=== PATIENT | female | born 1960 | race Caucasian/White ===

== ENCOUNTER 2021-11-30 11:58 | Inpatient (IN) | payer MEDICAID ==
[~2021-11-30] VITALS: Ht 167.6 cm; Wt 73.0 kg
[2021-11-30] MEDS ORDERED: folic acid 1mg/0.2ml inj IV ONE (12:25)
[2021-11-30] MEDS ORDERED: thiamine 100mg/ml 2ml inj. IV ONE (12:25)
[2021-11-30] MEDS ORDERED: normal saline 1000ML IV soln IVB ONE (12:25)
[2021-11-30 12:49] LABS: BASOPHILS % (AUTO) 0.3 % (0-1); EOSINOPHILS # (AUTO) 0.1 X10'3 (0-0.9); EOSINOPHILS % (AUTO) 0.9 % (0-6); HEMATOCRIT 37.8 % (35.0-45.0); HEMOGLOBIN 12.1 g/dl (12.0-16.0); LYMPHOCYTES # (AUTO) 3.1 X10'3 (1.1-4.8); LYMPHOCYTES % (AUTO) 32.2 % (21-51); MEAN CORPUSCULAR HEMOGLOBIN 25.8 PG (27.0-31.0); MEAN CORPUSCULAR HGB CONC 32.1 g/dL (33.0-36.5); MEAN CORPUSCULAR VOLUME 80.4 FL (78-98); MEAN PLATELET VOLUME 6.7 FL (7.4-10.4); MONOCYTES # (AUTO) 0.7 X10'3 (0-0.9); MONOCYTES % (AUTO) 7.1 % (2-12); NEUTROPHILS # (AUTO) 5.7 X10'3 (1.8-7.7); NEUTROPHILS % (AUTO) 59.5 % (42-75); PLATELET COUNT 329 X10'3 (140-440); RED BLOOD COUNT 4.71 X10'6 (4.20-5.60); WHITE BLOOD COUNT 9.6 X10'3 (4.5-11.0)
[2021-11-30 13:04] LABS: ALANINE AMINOTRANSFERASE 27 U/L (12-78); ALBUMIN 3.3 G/DL (3.4-5.0); ALBUMIN/GLOBULIN RATIO 1.1 (1.1-1.5); ALKALINE PHOSPHATASE 46 IU/L (46-116); ANION GAP 10 (8-16); ASPARTATE AMINO TRANSFERASE 19 U/L (10-37); BILIRUBIN,TOTAL 0.3 MG/DL (0.1-1.0); BLOOD UREA NITROGEN 11 MG/DL (7-18); BUN/CREATININE RATIO 15.7 (6.6-38.0); CHLORIDE 108 MMOL/L (99-107); ETHANOL < 0.010 GM/DL (0.0-0.010); GLUCOSE 113 MG/DL (70-104); POTASSIUM 3.2 MMOL/L (3.5-5.1); SODIUM 136 MMOL/L (135-145); TOTAL CARBON DIOXIDE 17.6 MMOL/L (24-32); TOTAL PROTEIN 6.4 G/DL (6.4-8.2); eGFR 85 ML/MIN
--- NOTE | 2021-11-30 13:15 | NUR ---
first contact with pt. found sitting in bed, slurred speech noted. pt unable to explain how she got to hospital. states she was 'on the way to her doctor' connected to monitors, awaiting md.
--- NOTE | 2021-11-30 14:03 | NUR ---
PT STRAIGHT CATH'D FOR URINE, TOLERATED WELL. PT SLOW TO ANSWER, QUESTIONS. COFUSED ON YEAR AND WHY SHE IS IN THE HOSPITAL. URINE SENT TO LAB.
[2021-11-30] MEDS ORDERED: lactulose 20gm/30ml cup PO ONE (14:05)
[2021-11-30 14:26] LABS: CLARITY,URINE CLEAR (Clear); COLOR,URINE YELLOW (Yellow); GLUCOSE, URINE NEGATIVE (Neg); KETONES,URINE NEGATIVE (Neg); LEUKOCYTE ESTERASE ,URINE NEGATIVE (Neg); NITRITES, URINE NEGATIVE (Neg); OCCULT BLOOD,URINE NEGATIVE (Neg); PH,URINE 6.5 (4.8-8.0); PROTEIN,URINE NEGATIVE (Neg); UROBILINOGEN,URINE 0.2 E.U/dL (0.2-1.0)
[2021-11-30 14:40] LABS: URINE AMPHETAMINE SCREEN NEGATIVE (Neg); URINE BARBITUATE SCREEN NEGATIVE (Neg); URINE BENZODIAZEPINES SCREEN NEGATIVE (Neg); URINE CANNABINOID SCREEN NEGATIVE (Neg); URINE COCAINE SCREEN NEGATIVE (Neg); URINE METHADONE SCREEN NEGATIVE (Neg); URINE OPIATE SCREEN NEGATIVE (Neg); URINE PHENCYCLIDINE SCREEN NEGATIVE (Neg)
[2021-11-30 14:54] LABS: UA COLLECTION TYPE STRAIGHT CATH
--- NOTE | 2021-11-30 15:00 | NUR ---
teleneuro placed in pt room. stroke nurse at bedside.
[2021-11-30] MEDS ORDERED: potassium Cl 20 mEq SR tablet PO PRN (15:10)
[2021-11-30] MEDS ORDERED: magnesium 2GM in 50ml NS 50 ML IV PRN (15:10)
[2021-11-30] MEDS ORDERED: acetaminophen 325mg tablet PO PRN (15:10)
[2021-11-30] MEDS ORDERED: mag hydrox/Alum hydrox/simeth 30ml oral suspension PO PRN (15:10)
[2021-11-30] MEDS ORDERED: potassium CL 10mEq/100ml bag 100 ML IV PRN (15:10)
[2021-11-30] MEDS ORDERED: magnesium 4gm in 100ml NS 100 ML IV PRN (15:10)
--- NOTE | 2021-11-30 15:31 | NUR ---
? Success A new connect request was successfully created for: PRIYA SCHWAB : 1960 ConnectID: [id number] REASON: Code Stroke TLKW 4.5 to 24 hours ACUITY: Acuity Level 2 SUBMITTED: 11/30/2021 15:31 PST
[2021-11-30] MEDS: lactulose 20gm/30ml cup PO SCH ×2 (16:00→23:39)
[2021-11-30] MEDS ORDERED: iohexol 350MG/ML 100ml bottle IV ONE (16:05)
[2021-11-30] MEDS: heparin, porcine 5000 units/ml vial SQ SCH ×2 (16:49→23:39)
[2021-11-30] MEDS ORDERED: CLOP75TA34 PO (18:41)
[2021-11-30] MEDS ORDERED: ACET-2389 PO (18:41)
[2021-11-30] MEDS ORDERED: IBUP-1985 PO (18:41)
[2021-11-30] MEDS ORDERED: HYDR50TA65 PO (18:41)
[2021-11-30] MEDS ORDERED: METH-797 PO (18:41)
[2021-11-30] MEDS ORDERED: ZOLP10TA PO (18:41)
[2021-11-30] MEDS ORDERED: LOSA25TA41 PO (18:41)
[2021-11-30] MEDS ORDERED: ATOR-2 PO (18:41)
[2021-11-30] MEDS ORDERED: BUPR1PAT9 TOP (18:41)
[2021-11-30] MEDS ORDERED: BUSP10TA3 PO (18:41)
[2021-11-30] MEDS ORDERED: PROP10TA10 PO (18:43)
[2021-11-30] MEDS: docusate sod 100mg capsule PO SCH (20:00)
[2021-11-30] MEDS: K and/or MAG REPLACEMENT MC SCH (20:00)
[2021-11-30 23:30] VITALS: BP 155/90
--- NOTE | 2021-11-30 23:30 | NUR ---
patient received from ER . patient AAOx2 name and place, denies pain vitals done and recorded,telemetry placed on patient sinus rhythm, pain patch noted on right shoulder blade.
[2021-11-30] MEDS: potassium Cl 20 mEq SR tablet PO PRN (23:40)
[2021-12-01] MEDS ORDERED: zolpidem 5mg tablet PO ONE ×2 (00:15→21:00)
[2021-12-01 02:00] VITALS: BP 146/84
[2021-12-01 06:00] VITALS: BP 108/66
[2021-12-01 06:16] LABS: BASOPHILS # (AUTO) 0.1 X10'3 (0-0.2); BASOPHILS % (AUTO) 0.5 % (0-1); EOSINOPHILS # (AUTO) 0.1 X10'3 (0-0.9); EOSINOPHILS % (AUTO) 0.8 % (0-6); HEMATOCRIT 38.3 % (35.0-45.0); LYMPHOCYTES # (AUTO) 3.8 X10'3 (1.1-4.8); LYMPHOCYTES % (AUTO) 36.1 % (21-51); MEAN CORPUSCULAR HEMOGLOBIN 25.4 PG (27.0-31.0); MEAN CORPUSCULAR HGB CONC 31.2 g/dL (33.0-36.5); MEAN CORPUSCULAR VOLUME 81.4 FL (78-98); MEAN PLATELET VOLUME 6.9 FL (7.4-10.4); MONOCYTES # (AUTO) 0.5 X10'3 (0-0.9); NEUTROPHILS % (AUTO) 57.6 % (42-75); PLATELET COUNT 315 X10'3 (140-440); RED BLOOD COUNT 4.71 X10'6 (4.20-5.60); RED CELL DISTRIBUTION WIDTH 17.2 % (11.5-14.5); WHITE BLOOD COUNT 10.4 X10'3 (4.5-11.0)
[2021-12-01 06:57] LABS: ALANINE AMINOTRANSFERASE 27 U/L (12-78); ALBUMIN/GLOBULIN RATIO 1.2 (1.1-1.5); ALKALINE PHOSPHATASE 48 IU/L (46-116); ANION GAP 13 (8-16); ASPARTATE AMINO TRANSFERASE 15 U/L (10-37); BILIRUBIN,TOTAL 0.2 MG/DL (0.1-1.0); BLOOD UREA NITROGEN 7 MG/DL (7-18); BUN/CREATININE RATIO 10.9 (6.6-38.0); CALCIUM 7.7 MG/DL (8.5-10.1); CHLORIDE 113 MMOL/L (99-107); CHOL/HDL RATIO 3.7 (0.00-4.99); CHOLESTEROL 157 MG/DL (0-200); CREATININE 0.64 MG/DL (0.40-0.90); GLUCOSE 87 MG/DL (70-104); HDL CHOLESTEROL 43 MG/DL (35-60); LDL CHOLESTEROL 78 MG/DL (50-100); POTASSIUM 3.8 MMOL/L (3.5-5.1); SODIUM 143 MMOL/L (135-145); TOTAL CARBON DIOXIDE 17.3 MMOL/L (24-32); TOTAL PROTEIN 5.5 G/DL (6.4-8.2); TRIGLYCERIDES 165 MG/DL (20-135); eGFR > 90 ML/MIN
[2021-12-01] MEDS: lactulose 20gm/30ml cup PO SCH ×2 (07:51→16:30)
[2021-12-01] MEDS: heparin, porcine 5000 units/ml vial SQ SCH ×2 (07:52→16:31)
[2021-12-01] MEDS: docusate sod 100mg capsule PO SCH ×2 (07:52→20:31)
[2021-12-01] MEDS: K and/or MAG REPLACEMENT MC SCH ×2 (08:00→20:00)
[2021-12-01 11:00] VITALS: BP 115/64
[2021-12-01] MEDS: ondansetron/PF 4mg/2ml inj IV PRN (11:47)
--- NOTE | 2021-12-01 14:13 | NUR ---
PAGER ID: [phone] MESSAGE: [id number] Faye Tapia has pain 9/10 on her right temporal all the way to ear. She has nothing for pain please advise. Thanks Jane ext [phone]
[2021-12-01 15:00] VITALS: BP 156/74
[2021-12-01] MEDS: HYDROcodone/acetaminophen 10/325mg tab PO PRN ×2 (16:29→17:32)
[2021-12-02] MEDS: lactulose 20gm/30ml cup PO SCH ×3 (01:25→23:50)
[2021-12-02] MEDS: heparin, porcine 5000 units/ml vial SQ SCH ×4 (01:25→23:48)
[2021-12-02 02:00] VITALS: BP 117/64
[2021-12-02 06:00] VITALS: BP 147/83
[2021-12-02 06:30] LABS: BASOPHILS % (AUTO) 0.2 % (0-1); EOSINOPHILS # (AUTO) 0.1 X10'3 (0-0.9); EOSINOPHILS % (AUTO) 0.8 % (0-6); HEMATOCRIT 40.6 % (35.0-45.0); LYMPHOCYTES # (AUTO) 2.7 X10'3 (1.1-4.8); LYMPHOCYTES % (AUTO) 27.2 % (21-51); MEAN CORPUSCULAR HEMOGLOBIN 25.8 PG (27.0-31.0); MEAN CORPUSCULAR VOLUME 80.5 FL (78-98); MEAN PLATELET VOLUME 6.8 FL (7.4-10.4); MONOCYTES # (AUTO) 0.7 X10'3 (0-0.9); MONOCYTES % (AUTO) 7.2 % (2-12); NEUTROPHILS # (AUTO) 6.5 X10'3 (1.8-7.7); NEUTROPHILS % (AUTO) 64.6 % (42-75); PLATELET COUNT 332 X10'3 (140-440); RED BLOOD COUNT 5.04 X10'6 (4.20-5.60); RED CELL DISTRIBUTION WIDTH 17.2 % (11.5-14.5)
[2021-12-02 06:51] LABS: ALANINE AMINOTRANSFERASE 28 U/L (12-78); ALBUMIN 3.4 G/DL (3.4-5.0); ALBUMIN/GLOBULIN RATIO 1.3 (1.1-1.5); ALKALINE PHOSPHATASE 51 IU/L (46-116); ANION GAP 12 (8-16); ASPARTATE AMINO TRANSFERASE 19 U/L (10-37); BILIRUBIN,TOTAL 0.2 MG/DL (0.1-1.0); BLOOD UREA NITROGEN 6 MG/DL (7-18); BUN/CREATININE RATIO 8.8 (6.6-38.0); CALCIUM 8.8 MG/DL (8.5-10.1); CHLORIDE 110 MMOL/L (99-107); CREATININE 0.68 MG/DL (0.40-0.90); GLUCOSE 111 MG/DL (70-104); MAGNESIUM 2.2 MG/DL (1.5-2.4); POTASSIUM 3.4 MMOL/L (3.5-5.1); SODIUM 142 MMOL/L (135-145); TOTAL PROTEIN 6.1 G/DL (6.4-8.2); eGFR 88 ML/MIN
[2021-12-02] MEDS: ondansetron/PF 4mg/2ml inj IV PRN ×2 (07:03→13:31)
[2021-12-02] MEDS: docusate sod 100mg capsule PO SCH ×2 (08:00→19:28)
[2021-12-02] MEDS: HYDROcodone/acetaminophen 10/325mg tab PO PRN ×2 (09:02→13:30)
[2021-12-02] MEDS ORDERED: acetaminophen 325mg tablet PO PRN (09:35)
[2021-12-02] MEDS ORDERED: BUPRENORPHINE (Butrans) 10MCG PATCH.TDWK (7-day patch) TD SCH (09:35)
[2021-12-02] MEDS ORDERED: BUPRENORPHINE (Butrans) 10MCG PATCH.TDWK (7-day patch) TP SCH (09:38)
[2021-12-02 11:00] VITALS: BP 147/84
--- NOTE | 2021-12-02 11:12 | NUR ---
PAGER ID: [phone] MESSAGE: [id number] Faye Tapia was given Zofran at 0730, it was not effective. Do you want to give a second line anti nausea med? Please advise. Thanks Jane ext [phone]
[2021-12-02] MEDS: cyclobenzaprine 10mg tablet PO SCH ×2 (13:28→20:17)
[2021-12-02] MEDS: busPIRone 5mg tablet PO SCH ×2 (13:31→19:27)
[2021-12-02] MEDS: atorvastatin 20mg tablet PO SCH (13:31)
[2021-12-02] MEDS: K and/or MAG REPLACEMENT MC SCH ×2 (13:38→19:26)
[2021-12-02] MEDS: potassium Cl 20 mEq SR tablet PO PRN ×2 (13:38→19:27)
[2021-12-02 15:00] VITALS: BP 94/47
--- NOTE | 2021-12-02 15:53 | NUR ---
PAGER ID: [phone] MESSAGE: [id number] is continuously nauseated and the Zofran only works momentarily. Do you want to prescribe a second line nausea medication? Please advise. Jane MAR ext [phone]
[2021-12-02] MEDS ORDERED: proCHLORperazine 10 MG/2 ml inj IV PRN (15:55)
[2021-12-02 18:00] VITALS: BP 129/78
[2021-12-02] MEDS: propranolol 10mg tablet PO SCH (19:26)
[2021-12-02] MEDS: zolpidem 5mg tablet PO PRN (19:27)
[2021-12-03 02:00] VITALS: BP 130/91
[2021-12-03 05:57] LABS: BASOPHILS % (AUTO) 0.5 % (0-1); EOSINOPHILS # (AUTO) 0.1 X10'3 (0-0.9); EOSINOPHILS % (AUTO) 0.8 % (0-6); HEMATOCRIT 45.4 % (35.0-45.0); HEMOGLOBIN 14.2 g/dl (12.0-16.0); LYMPHOCYTES % (AUTO) 34.1 % (21-51); MEAN CORPUSCULAR HEMOGLOBIN 25.8 PG (27.0-31.0); MEAN CORPUSCULAR HGB CONC 31.2 g/dL (33.0-36.5); MEAN CORPUSCULAR VOLUME 82.7 FL (78-98); MEAN PLATELET VOLUME 6.8 FL (7.4-10.4); MONOCYTES # (AUTO) 0.7 X10'3 (0-0.9); MONOCYTES % (AUTO) 8.2 % (2-12); NEUTROPHILS # (AUTO) 4.9 X10'3 (1.8-7.7); NEUTROPHILS % (AUTO) 56.4 % (42-75); PLATELET COUNT 318 X10'3 (140-440); RED BLOOD COUNT 5.49 X10'6 (4.20-5.60); RED CELL DISTRIBUTION WIDTH 17.3 % (11.5-14.5); WHITE BLOOD COUNT 8.7 X10'3 (4.5-11.0)
[2021-12-03 06:00] VITALS: BP 124/78
[2021-12-03 06:31] LABS: ALANINE AMINOTRANSFERASE 37 U/L (12-78); ALBUMIN 3.6 G/DL (3.4-5.0); ALBUMIN/GLOBULIN RATIO 1.3 (1.1-1.5); ALKALINE PHOSPHATASE 57 IU/L (46-116); ANION GAP 17 (8-16); ASPARTATE AMINO TRANSFERASE 32 U/L (10-37); BILIRUBIN,TOTAL 0.3 MG/DL (0.1-1.0); BLOOD UREA NITROGEN 6 MG/DL (7-18); BUN/CREATININE RATIO 7.9 (6.6-38.0); CALCIUM 9.4 MG/DL (8.5-10.1); CHLORIDE 113 MMOL/L (99-107); CREATININE 0.76 MG/DL (0.40-0.90); GLUCOSE 127 MG/DL (70-104); MAGNESIUM 2.3 MG/DL (1.5-2.4); SODIUM 143 MMOL/L (135-145); TOTAL PROTEIN 6.4 G/DL (6.4-8.2); eGFR 78 ML/MIN
[2021-12-03 06:37] LABS: POTASSIUM 4.8 MMOL/L (3.5-5.1)
--- NOTE | 2021-12-03 06:48 | NUR ---
Problems reprioritized. Patient report given, questions answered & plan of care reviewed with Kathryn MAR.
[2021-12-03 06:52] LABS: TOTAL CARBON DIOXIDE 13.4 MMOL/L (24-32)
--- NOTE | 2021-12-03 07:04 | NUR ---
PAGER ID: [phone] MESSAGE: [id number] WillieFaye- [facility] [place] 13.4. Ok to hold BP medications for permissive HTN? Kathryn 54Eloise Addendum: 12/03/21 at 0715 by Kathryn Rice RN Dr. Diaz called back. States to order ABG and to hold propranolol and Cozaar for permissive HTN
[2021-12-03] MEDS: losartan 25mg tablet PO SCH (08:00)
[2021-12-03] MEDS: propranolol 10mg tablet PO SCH ×2 (08:00→19:44)
[2021-12-03] MEDS: K and/or MAG REPLACEMENT MC SCH ×2 (08:00→20:00)
[2021-12-03] MEDS: docusate sod 100mg capsule PO SCH ×2 (08:00→19:44)
[2021-12-03 08:03] LABS: ABG BASE EXCESS -9.4 mmol/L (-2.0-2.0); ABG HCO3 15.8 mmol/L (22.0-26.0); ABG OXYGEN SATURATION 94.5 % (94-97); ABG PCO2 (T) 32.6 mmHg (32.0-45.0); ABG PO2 (T) 73.4 mmHg (75.0-100.0); ALLEN'S TEST POSITIVE; FMetHb 0.3 % (0.0-1.5); FO2Hb 93.3 % (94-97)
[2021-12-03] MEDS ORDERED: iohexol 300mg/ml 100ml inj. ONE (08:35)
[2021-12-03] MEDS: busPIRone 5mg tablet PO SCH ×2 (08:35→19:44)
[2021-12-03] MEDS: cyclobenzaprine 10mg tablet PO SCH ×3 (08:35→19:44)
[2021-12-03] MEDS: clopidogrel 75mg tablet PO SCH (08:35)
[2021-12-03] MEDS: atorvastatin 20mg tablet PO SCH (08:36)
[2021-12-03] MEDS: heparin, porcine 5000 units/ml vial SQ SCH ×2 (08:37→16:15)
[2021-12-03] MEDS: lactulose 20gm/30ml cup PO SCH ×3 (08:38→22:21)
[2021-12-03] MEDS: sodium bicarbonate (8.4%) inj. 150 MEQ in dextrose 5%-water 1,000 ML IV SCH ×2 (09:40→22:22)
[2021-12-03 11:00] VITALS: BP 118/79
[2021-12-03 15:00] VITALS: BP 132/85
[2021-12-03 18:00] VITALS: BP 146/94
--- NOTE | 2021-12-03 18:00 | NUR ---
Problems reprioritized. Patient report given, questions answered & plan of care reviewed with Marylou MAR.
[2021-12-03 22:00] VITALS: BP 123/86
[2021-12-03] MEDS: zolpidem 5mg tablet PO PRN (22:21)
[2021-12-03] MEDS: ondansetron/PF 4mg/2ml inj IV PRN (22:27)
--- NOTE | 2021-12-04 00:09 | NUR ---
Patient in room PCU 3017. I have received report from ARABELLA MAR and had the opportunity to ask questions and assume patient care.
--- NOTE | 2021-12-04 00:17 | NUR ---
Assumed care after mid night and will continue to monitor.
[2021-12-04] MEDS: heparin, porcine 5000 units/ml vial SQ SCH ×3 (00:19→15:51)
[2021-12-04 02:00] VITALS: BP 112/82
--- NOTE | 2021-12-04 06:28 | NUR ---
Problems reprioritized. Patient report given, questions answered & plan of care reviewed with LENORE MAR.
[2021-12-04 06:43] LABS: BASOPHILS % (AUTO) 0.3 % (0-1); EOSINOPHILS # (AUTO) 0.1 X10'3 (0-0.9); EOSINOPHILS % (AUTO) 0.7 % (0-6); HEMATOCRIT 40.6 % (35.0-45.0); HEMOGLOBIN 13.4 g/dl (12.0-16.0); LYMPHOCYTES # (AUTO) 3.3 X10'3 (1.1-4.8); LYMPHOCYTES % (AUTO) 35.5 % (21-51); MEAN CORPUSCULAR HEMOGLOBIN 26.2 PG (27.0-31.0); MEAN CORPUSCULAR HGB CONC 33.1 g/dL (33.0-36.5); MEAN CORPUSCULAR VOLUME 79.1 FL (78-98); MEAN PLATELET VOLUME 6.8 FL (7.4-10.4); MONOCYTES # (AUTO) 0.7 X10'3 (0-0.9); MONOCYTES % (AUTO) 7.1 % (2-12); NEUTROPHILS # (AUTO) 5.2 X10'3 (1.8-7.7); NEUTROPHILS % (AUTO) 56.4 % (42-75); PLATELET COUNT 314 X10'3 (140-440); RED BLOOD COUNT 5.13 X10'6 (4.20-5.60); RED CELL DISTRIBUTION WIDTH 17.1 % (11.5-14.5); WHITE BLOOD COUNT 9.3 X10'3 (4.5-11.0)
[2021-12-04 07:00] VITALS: BP 124/81
[2021-12-04 07:18] LABS: ALANINE AMINOTRANSFERASE 32 U/L (12-78); ALBUMIN 3.1 G/DL (3.4-5.0); ALBUMIN/GLOBULIN RATIO 1.3 (1.1-1.5); ALKALINE PHOSPHATASE 47 IU/L (46-116); ANION GAP 12 (8-16); ASPARTATE AMINO TRANSFERASE 17 U/L (10-37); BILIRUBIN,TOTAL 0.2 MG/DL (0.1-1.0); BLOOD UREA NITROGEN 5 MG/DL (7-18); BUN/CREATININE RATIO 6.3 (6.6-38.0); CALCIUM 8.6 MG/DL (8.5-10.1); CHLORIDE 106 MMOL/L (99-107); GLUCOSE 140 MG/DL (70-104); MAGNESIUM 1.7 MG/DL (1.5-2.4); SODIUM 144 MMOL/L (135-145); TOTAL CARBON DIOXIDE 25.8 MMOL/L (24-32); TOTAL PROTEIN 5.4 G/DL (6.4-8.2); eGFR 73 ML/MIN
[2021-12-04] MEDS ORDERED: magnesium Cl slow-release 64mg tablet PO PRN (07:50)
[2021-12-04] MEDS ORDERED: potassium Cl 20 mEq SR tablet PO PRN (07:50)
[2021-12-04] MEDS ORDERED: potassium CL 10mEq/100ml bag 100 ML IV PRN (07:50)
[2021-12-04] MEDS ORDERED: magnesium 4gm in 100ml NS 100 ML IV PRN (07:50)
[2021-12-04] MEDS: clopidogrel 75mg tablet PO SCH (07:53)
[2021-12-04] MEDS: atorvastatin 20mg tablet PO SCH (07:53)
[2021-12-04] MEDS: docusate sod 100mg capsule PO SCH ×2 (07:54→19:22)
[2021-12-04] MEDS: propranolol 10mg tablet PO SCH ×2 (07:54→19:22)
[2021-12-04] MEDS: losartan 25mg tablet PO SCH (07:54)
[2021-12-04] MEDS: hydrOXYzine 25 MG tablet PO PRN ×2 (07:55→17:03)
[2021-12-04] MEDS: cyclobenzaprine 10mg tablet PO SCH ×3 (07:55→19:23)
[2021-12-04] MEDS: busPIRone 5mg tablet PO SCH ×2 (07:55→19:22)
[2021-12-04] MEDS: nicotine 14mg patch - 24hr TD SCH (07:56)
[2021-12-04] MEDS: lactulose 20gm/30ml cup PO SCH ×2 (07:57→15:50)
[2021-12-04] MEDS: K and/or MAG REPLACEMENT MC SCH ×2 (08:00→20:00)
[2021-12-04] MEDS: potassium Cl 20 mEq SR tablet PO PRN ×3 (08:08→19:23)
[2021-12-04] MEDS: sodium bicarbonate (8.4%) inj. 150 MEQ in dextrose 5%-water 1,000 ML IV SCH (08:11)
[2021-12-04 11:00] VITALS: BP 123/76
--- NOTE | 2021-12-04 11:29 | NUR ---
Page Accepted promotional table spacer Message: [id number] Willie. Unable to obtain IV access even with US guidance. Jessica [phone]
--- NOTE | 2021-12-04 11:29 | NUR ---
3 RNs tried to obtain IV access and were unable to do so . ED RN came up with ultrasound to place PIV and was not able to obtain access . Dr. John notified by page.
[2021-12-04 15:00] VITALS: BP 115/86
[2021-12-04] MEDS: HYDROcodone/acetaminophen 10/325mg tab PO PRN ×2 (15:52→17:21)
--- NOTE | 2021-12-04 18:11 | NUR ---
Problems reprioritized. Patient report given, questions answered & plan of care reviewed with Marylou MAR. Patient resting in bed in no acute distress.
--- NOTE | 2021-12-04 18:25 | NUR ---
Patient was not administered a second norco at 1721 my orientee was trying to reasses pain and ended up accidentally administering norco instead. I caught the mistake when I was checking charting and immediately called pharmacy to verify.
[2021-12-04] MEDS: sodium bicarbonate 650mg tablet PO SCH (19:23)
[2021-12-04] MEDS: zolpidem 5mg tablet PO PRN (21:12)
[2021-12-04 22:00] VITALS: BP 101/62
[2021-12-05 02:00] VITALS: BP 110/71
--- NOTE | 2021-12-05 05:46 | NUR ---
Patient slept throughout the night, no issues observed.
[2021-12-05 07:00] VITALS: BP 122/88
--- NOTE | 2021-12-05 07:26 | NUR ---
Page to PICC RN 1962Q Willie. Patient needs midline. Unable to obtain IV access with US assistance from ED yesterday and lab is having difficulty drawing. Jessica [phone]
[2021-12-05] MEDS: atorvastatin 20mg tablet PO SCH (07:32)
[2021-12-05] MEDS: losartan 25mg tablet PO SCH (07:33)
[2021-12-05] MEDS: clopidogrel 75mg tablet PO SCH (07:33)
[2021-12-05] MEDS: propranolol 10mg tablet PO SCH (07:33)
[2021-12-05] MEDS: lactulose 20gm/30ml cup PO SCH ×2 (07:33)
[2021-12-05] MEDS: cyclobenzaprine 10mg tablet PO SCH ×2 (07:34→12:05)
[2021-12-05] MEDS: docusate sod 100mg capsule PO SCH ×2 (07:34→07:45)
[2021-12-05] MEDS: HYDROcodone/acetaminophen 10/325mg tab PO PRN (07:35)
[2021-12-05] MEDS: busPIRone 5mg tablet PO SCH (07:35)
[2021-12-05] MEDS: nicotine 14mg patch - 24hr TD SCH (07:36)
[2021-12-05] MEDS: heparin, porcine 5000 units/ml vial SQ SCH ×2 (07:37)
[2021-12-05] MEDS: sodium bicarbonate 650mg tablet PO SCH ×2 (07:41→12:05)
[2021-12-05 07:55] LABS: BASOPHILS % (AUTO) 0.3 % (0-1); EOSINOPHILS # (AUTO) 0.1 X10'3 (0-0.9); EOSINOPHILS % (AUTO) 1.2 % (0-6); HEMATOCRIT 43.7 % (35.0-45.0); HEMOGLOBIN 14.1 g/dl (12.0-16.0); LYMPHOCYTES # (AUTO) 3.8 X10'3 (1.1-4.8); LYMPHOCYTES % (AUTO) 39.5 % (21-51); MEAN CORPUSCULAR HEMOGLOBIN 26.3 PG (27.0-31.0); MEAN CORPUSCULAR HGB CONC 32.3 g/dL (33.0-36.5); MEAN CORPUSCULAR VOLUME 81.4 FL (78-98); MEAN PLATELET VOLUME 7.1 FL (7.4-10.4); MONOCYTES # (AUTO) 0.7 X10'3 (0-0.9); MONOCYTES % (AUTO) 7.1 % (2-12); NEUTROPHILS % (AUTO) 51.9 % (42-75); PLATELET COUNT 359 X10'3 (140-440); RED BLOOD COUNT 5.38 X10'6 (4.20-5.60); RED CELL DISTRIBUTION WIDTH 17.1 % (11.5-14.5); WHITE BLOOD COUNT 9.5 X10'3 (4.5-11.0)
[2021-12-05 07:58] LABS: ALANINE AMINOTRANSFERASE 46 U/L (12-78); ALBUMIN 3.6 G/DL (3.4-5.0); ALBUMIN/GLOBULIN RATIO 1.3 (1.1-1.5); ALKALINE PHOSPHATASE 54 IU/L (46-116); ANION GAP 12 (8-16); ASPARTATE AMINO TRANSFERASE 27 U/L (10-37); BILIRUBIN,TOTAL 0.3 MG/DL (0.1-1.0); BLOOD UREA NITROGEN 8 MG/DL (7-18); BUN/CREATININE RATIO 10.3 (6.6-38.0); CALCIUM 9.5 MG/DL (8.5-10.1); CHLORIDE 106 MMOL/L (99-107); CREATININE 0.78 MG/DL (0.40-0.90); GLUCOSE 113 MG/DL (70-104); POTASSIUM 4.8 MMOL/L (3.5-5.1); SODIUM 141 MMOL/L (135-145); TOTAL CARBON DIOXIDE 22.9 MMOL/L (24-32); TOTAL PROTEIN 6.3 G/DL (6.4-8.2); eGFR 75 ML/MIN
[2021-12-05] MEDS: K and/or MAG REPLACEMENT MC SCH (08:00)
[2021-12-05] MEDS ORDERED: levetiracetam 250mg tablet PO ONE (09:15)
[2021-12-05] MEDS ORDERED: LACT10SO32 PO (09:20)
[2021-12-05] MEDS ORDERED: KEP500T PO (09:20)
[2021-12-05] MEDS ORDERED: SODI650T29 PO (09:21)
[2021-12-05 11:00] VITALS: BP 121/79
--- NOTE | 2021-12-05 11:34 | NUR ---
Initial: Pt admit dx encephalopathy, hyperammonemia, and hx of CVA per EMR. PO intake 50% avg of SB6 heart healthy meals, meeting ~58% of estimated energy needs and ~94% of estimated protein needs. Noted A&O progressively improving from x2 to x3 and dx of encephalopathy per EMR, likely contributing to poor PO intake. Pt would benefit from Magic cups TIDWM to help meet kcal/protein needs, dietary notified. LBM 12/04, receiving routine bowel care. Will continue to monitor. Recommendations: 1. Continue SB6 and heart healthy diet as tolerated 2. Magic Cups TIDWM 3. Encourage PO intake 4. Routine bowel care 5. Weekly wt Addendum: 12/05/21 at [address] Amended: Links added. Addendum: 12/05/21 at [address] RD has reviewed and approves of above note.
--- NOTE | 2021-12-05 12:58 | NUR ---
Patient is DC to home. She did not have an IV. RX were escripted to [facility] in [place]. DC instructions and warning s/s were reviewed with the patient and she verbalized understanding. PT was alert, oriented, and appropriate at time of dc. Patient was wheeled out to her friend for a ride home.
[2021-12-09] MEDS ORDERED: REMOVE & WASTE BUTRANS PATCH DOCUMENTATION TD SCH (08:00)
== END 2021-12-05 12:46 | disposition home health service (06) | DRG 52 ==
LOC: ER 11:58 → ED HOLD 15:14 → PCU 3S 23:00
PROVIDERS: ADMIT Family Medicine; ATTEND Family Medicine
PROC: B3251ZZ Computerized Tomography (CT Scan) of Bilateral Common Carotid Arteries using Low Osmolar Contrast (ICD-10-PCS; principal; 2021-11-30)
PROC: B32G1ZZ Computerized Tomography (CT Scan) of Bilateral Vertebral Arteries using Low Osmolar Contrast (ICD-10-PCS; 2021-11-30)
PROC: B32R1ZZ Computerized Tomography (CT Scan) of Intracranial Arteries using Low Osmolar Contrast (ICD-10-PCS; 2021-11-30)
PROC: B3281ZZ Computerized Tomography (CT Scan) of Bilateral Internal Carotid Arteries using Low Osmolar Contrast (ICD-10-PCS; 2021-11-30)
PROC: BW211ZZ Computerized Tomography (CT Scan) of Abdomen and Pelvis using Low Osmolar Contrast (ICD-10-PCS; 2021-12-03)
DX: G93.41 Metabolic encephalopathy (principal); E72.20 Disorder of urea cycle metabolism, unspecified; Z90.79 Acquired absence of other genital organ(s); I10 Essential (primary) hypertension; I25.10 Atherosclerotic heart disease of native coronary artery without angina pectoris; Z66 Do not resuscitate; E87.6 Hypokalemia; F17.210 Nicotine dependence, cigarettes, uncomplicated; Z71.6 Tobacco abuse counseling; Z90.710 Acquired absence of both cervix and uterus; Z90.722 Acquired absence of ovaries, bilateral; Z95.5 Presence of coronary angioplasty implant and graft; Z88.8 Allergy status to other drugs, medicaments and biological substances; Z88.1 Allergy status to other antibiotic agents; Z88.5 Allergy status to narcotic agent; Z79.899 Other long term (current) drug therapy; Z79.02 Long term (current) use of antithrombotics/antiplatelets; Z86.73 Personal history of transient ischemic attack (TIA), and cerebral infarction without residual deficits
CPT/HCPCS: 36415; 36600; 70450; 70496; 70498; 70551; 74177; 80053; 80061; 80305; 80320; 81003; 82140; 82803; 83735; 85018; 85025; 87081; 92508; 92616; 93306; 93880; 95816; 96360; 97161; 97530; 99285; G0378; J0780; J1644; J2405; J3411; J3490; J7030; J7070; Q0177; Q9967

== ENCOUNTER → 2025-05-19 | Day surgery (SDC) | payer MEDICAID ==
[2025-05-15 09:34] LABS: MEAN PLATELET VOLUME 7.2 FL (7.4-10.4); RED CELL DISTRIBUTION WIDTH 15.1 % (11.5-14.5)
[2025-05-15 09:49] LABS: APTT 29 SECONDS (22-32); INR 1.0 INR
[2025-05-15 09:51] LABS: CHOL/HDL RATIO 3.3 (0.00-4.99); CREATININE 0.57 MG/DL (0.40-0.90); LDL CHOLESTEROL 133 MG/DL (50-100); TOTAL CARBON DIOXIDE 17.6 MMOL/L (24-32); eGFR > 90 ML/MIN
[~2025-05-19] VITALS: Ht 165.1 cm; Wt 63.9 kg
[~2025-05-19] MED LIST: ACET-2389 PO; APIX5TAB3 PO; ASPI-1397 PO; ATOR-2 PO; BUPR1PAT9 TOP; BUSP10TA3 PO; CLIN300C56 PO; CLOP75TA34 PO; ERGO500093 PO; FLUT16SP26; HYDR50TA65 PO; KEP500T PO; LACT10SO78 PO; LEVA15HF9 INH; LOSA25TA41 PO; METH-797 PO; NITR0.4T48; ONDA-243; PANT40TA54 PO; PROP10TA10 PO; SODI650T29 PO; TIZA-205 PO; ZOLP-679 PO
--- NOTE | 2025-05-19 10:20 | ELECTROCARDIOGRAPH REPORT ---
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
== END | disposition home or self-care (01) ==
LOC: LAB 05-15 08:59 → SSTAY O 09:43 → EDSTATUS 14:00
PROVIDERS: ATTEND Student in an Organized Health Care Education/Training Program
DX: R94.30 Abnormal result of cardiovascular function study, unspecified (principal); I25.10 Atherosclerotic heart disease of native coronary artery without angina pectoris; I11.9 Hypertensive heart disease without heart failure; E78.5 Hyperlipidemia, unspecified
CPT/HCPCS: 36415; 80048; 80061; 83695; 85025; 85610; 85730; 93005; J7030

== ENCOUNTER 2025-06-16 11:04 | Day surgery (SDC) | payer MEDICAID ==
[2025-06-12 10:45] LABS: MEAN PLATELET VOLUME 7.5 FL (7.4-10.4); RED CELL DISTRIBUTION WIDTH 15.8 % (11.5-14.5)
[2025-06-12 10:57] LABS: APTT 27 SECONDS (22-32); INR 1.1 INR
[2025-06-12 10:58] LABS: CREATININE 0.65 MG/DL (0.40-0.90); TOTAL CARBON DIOXIDE 26.7 MMOL/L (24-32); eGFR > 90 ML/MIN
[~2025-06-16] VITALS: Ht 165.1 cm; Wt 64.1 kg
[2025-06-16] VITALS (12 sets, daily range): BP systolic 124–170; BP diastolic 67–80; PULSE 59–86; RESP 12–17; TEMP 98.1; O2SAT 90–97
[~2025-06-16 11:04] MED LIST changes: -BUSP10TA3 PO; -LACT10SO78 PO; -PROP10TA10 PO; -SODI650T29 PO
--- NOTE | 2025-06-16 11:40 | ELECTROCARDIOGRAPH REPORT ---
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 MICHAEL Lopez Measurements Intervals [place] Rate: 87 P: 74 NC: 128 QRS: 88 QRSD: 130 T: 49 QT: 418 QTc: 503 Interpretive Statements Sinus rhythm Right bundle branch block Electronically Signed On 06-16-2025 17:18:[address] MICHAEL Lopez Please click the below link to view image of tracing.
[2025-06-16] MEDS ORDERED: BUPR1PAT3 TOP (12:35)
[2025-06-16] MEDS ORDERED: ZOLP5TAB8 PO (12:35)
[2025-06-16] MEDS ORDERED: LEVE500T PO (12:37)
[2025-06-16] MEDS ORDERED: fentaNYL/PF 50MCG/1 ML 2ML syringe ONE ×2 (13:56→15:09)
[2025-06-16] MEDS ORDERED: verapamil 2.5 mg/ml inj IV ONE (13:56)
[2025-06-16] MEDS ORDERED: heparin 1,000unit/ml 10ml vial 10 ML ONE (13:56)
[2025-06-16] MEDS ORDERED: midazolam 1 mg/ML 2ml injection ONE ×3 (13:56→14:50)
[2025-06-16] MEDS ORDERED: LIDOcaine 1% (10mg/ml) 2ml vial ONE (13:56)
[2025-06-16] MEDS ORDERED: nitroGLYCERIN 500mcg/5mL D5W 5 ML IV ONE (13:59)
[2025-06-16] MEDS ORDERED: LIDOcaine 1% 30ml preserv. free vial ONE (14:38)
[2025-06-16] MEDS ORDERED: ondansetron/PF 4mg/2ml inj IV PRN (17:10)
[2025-06-16] MEDS ORDERED: HYDROcodone/acetaminophen 10/325mg tab PO PRN (17:15)
[2025-06-16] MEDS ORDERED: OXAZEpam 15mg capsule PO PRN (17:15)
[2025-06-16] MEDS ORDERED: HYDROcodone/acetaminophen 5mg/325mg tablet PO PRN (17:15)
--- NOTE | 2025-06-21 18:45 | GI LAB REPORT ---
DATE OF PROCEDURE: 06/16/2025 DICTATING PHYSICIAN: Joel Joe MD DATE OF PROCEDURE: 06/16/2025. PROCEDURES: * Attempted access to the right radial artery. * Access to the right common femoral artery. * Selective right common femoral and iliac artery angiography. * Access to the left common femoral artery. * Selective coronary angiography. * Left ventriculography. * Aortoiliac angiography. * Conscious sedation monitoring time for 30 minutes. INDICATION: Chest pain. PHYSICIAN: Joel Joe MD DESCRIPTION OF PROCEDURE: After informed consent was obtained, the patient was brought to the lab, where she was prepped and draped in the usual sterile fashion. Attempt at accessing the right radial artery was made without success. Thereafter, access to the right common femoral artery was obtained. Difficulty was encountered in advancing the wire above the common iliac artery. Selective angiography revealed an occluded right common iliac artery. Access to the left common femoral artery was then obtained. Using a JL4 followed by a JR4 catheter, selective coronary angiography was performed. The JR4 catheter was then pulled back to the distal abdominal aorta, where aortoiliac artery was performed. The pigtail catheter was then manipulated to engage the left ventricle and left ventricular end diastolic pressure was obtained. HEMODYNAMICS: For the patient's hemodynamics, please refer to the event log. Left ventricular end diastolic pressure was 15 mmHg. FINDINGS: Access to the right common femoral artery was obtained. Difficulty was encountered in advancing the wire above the common iliac artery. Selective angiography of the iliac arteries revealed an occluded right common iliac artery. The left main coronary artery is a medium-caliber vessel, free of significant disease. The left anterior descending coronary artery is a medium-caliber vessel with mild luminal irregularities. The circumflex coronary artery is a small-caliber vessel with mild luminal irregularities. The right coronary artery is severely diseased with left to right collaterals. Left ventricular end diastolic pressure is 15 mmHg. Aortoiliac angiography revealed an occluded right common iliac artery with a nub identified in the right common iliac artery. IMPRESSION: * Occluded right coronary artery. The right coronary artery is severely diseased. However, extensive collaterals from the left to the right are noted. * Mild luminal irregularities of the left system. * Occluded right common iliac artery with a nub in the right common iliac artery that is amenable to revascularization if the patient is symptomatic. * Left ventricular end diastolic pressure is 15 mmHg. Joel Joe MD TID: [id number] RECEIPT: [id number] NEO/GARY
== END 2025-06-16 19:00 | disposition home or self-care (01) ==
LOC: SSTAY O 11:04
PROVIDERS: ATTEND Student in an Organized Health Care Education/Training Program
DX: R94.39 Abnormal result of other cardiovascular function study (principal); I45.10 Unspecified right bundle-branch block; I25.10 Atherosclerotic heart disease of native coronary artery without angina pectoris; I10 Essential (primary) hypertension; E78.00 Pure hypercholesterolemia, unspecified; I48.0 Paroxysmal atrial fibrillation; Z86.73 Personal history of transient ischemic attack (TIA), and cerebral infarction without residual deficits; Z79.82 Long term (current) use of aspirin; Z79.899 Other long term (current) drug therapy; Z88.5 Allergy status to narcotic agent; Z88.8 Allergy status to other drugs, medicaments and biological substances
CPT/HCPCS: 36415; 80048; 85025; 85610; 85730; 93005; 93458; 93567; 99152; 99153; C1760; J0780; J1171; J1644; J2003; J2250; J3010; J3490; J7030; Q9967; 36245; A4615; A6258; C1894